=== PATIENT | male | born 1990 | race Caucasian/White ===

== ENCOUNTER 2019-01-08 22:46 | Inpatient (IN) | payer OTHER ==
[~2019-01-08] VITALS: Ht 167.6 cm; Wt 70.9 kg
[2019-01-08 22:52] VITALS: Ht 167.6 cm; Wt 70.9 kg
[2019-01-08 23:36] LABS: microscopic required? YES; urine erythrocyte NEGATIVE (NEGATIVE)
[2019-01-08 23:56] LABS: BASOPHIL % 0.2 % (0-2); PLATELET COUNT 222 x10^3mcL (130-400)
[2019-01-08 23:57] LABS: RED CELL DISTRIBUTION WIDTH 15.9 % (11.5-14.5)
[2019-01-09 00:09] LABS: CALCIUM 8.3 mg/dL (8.5-10.1); CARBON DIOXIDE 26.4 mmol/L (21-32); CHLORIDE SERUM 104 mmol/L (98-107); CREATININE SERUM 1.1 mg/dL (0.7-1.3); GFR1 > 60 mL/min; GLUCOSE SERUM 116 mg/dL (74-106); POTASSIUM SERUM 3.6 mmol/L (3.5-5.1); SODIUM SERUM 142 mmol/L (136-145)
[2019-01-09 00:10] LABS: ovalocyte/elliptocyte 1+
[2019-01-09 00:11] LABS: rbc morphology (normal/abnorm) ABNORMAL (NORMAL)
[2019-01-09 00:13] LABS: ALBUMIN 4.2 g/dL (3.4-5.0); ALKALINE PHOSPHATASE 60 U/L (46-116); ALT/SGPT 35 U/L (16-63); AST/SGOT 14 U/L (15-37); BILIRUBIN TOTAL 1.3 mg/dL (0.20-1.00); LIPASE 193 IU/L (73-393); TOTAL PROTEIN, SERUM 7.9 g/dL (6.4-8.2)
[2019-01-09] MEDS ORDERED: XANAX0.5 MG PO (01:57)
[2019-01-09 02:01] LABS: MAGNESIUM 1.8 mg/dL (1.8-2.4)
[2019-01-09 02:02] LABS: CHOLESTEROL/HDL RATIO 3.2
[2019-01-09 02:40] VITALS: BP 116/63
[2019-01-09 05:50] VITALS: BP 120/59
[2019-01-09 06:53] LABS: CALCIUM 8.4 mg/dL (8.5-10.1); CARBON DIOXIDE 27.5 mmol/L (21-32); CHLORIDE SERUM 104 mmol/L (98-107); GFR1 > 60 mL/min; GLUCOSE SERUM 91 mg/dL (74-106); POTASSIUM SERUM 3.7 mmol/L (3.5-5.1); SODIUM SERUM 143 mmol/L (136-145)
[2019-01-09 07:08] LABS: BASOPHIL % 0.2 % (0-2); PLATELET COUNT 208 x10^3mcL (130-400)
[2019-01-09 07:19] LABS: RED CELL DISTRIBUTION WIDTH 16.5 % (11.5-14.5)
[2019-01-09 07:20] LABS: rbc morphology (normal/abnorm) ABNORMAL (NORMAL)
[2019-01-09 09:07] VITALS: BP 105/50
[2019-01-09 16:30] VITALS: BP 98/49
[2019-01-09 20:16] VITALS: BP 105/57
[2019-01-10 00:05] LABS: AMPHETAMINE QUAL UR NONE DETECTED (See below)
[2019-01-10 05:12] VITALS: BP 106/50
[2019-01-10 06:15] LABS: PLATELET COUNT 184 x10^3mcL (130-400)
[2019-01-10 06:36] LABS: CALCIUM 8.6 mg/dL (8.5-10.1); CARBON DIOXIDE 25.8 mmol/L (21-32); CHLORIDE SERUM 106 mmol/L (98-107); CREATININE SERUM 1.1 mg/dL (0.7-1.3); GFR1 > 60 mL/min; GLUCOSE SERUM 132 mg/dL (74-106); POTASSIUM SERUM 3.9 mmol/L (3.5-5.1); SODIUM SERUM 142 mmol/L (136-145)
[2019-01-10 06:49] LABS: BASOPHIL % 0 % (0-2); RED CELL DISTRIBUTION WIDTH 16.6 % (11.5-14.5)
[2019-01-10 08:26] VITALS: BP 114/58
[2019-01-10 17:03] VITALS: BP 112/63
[2019-01-10 21:37] VITALS: BP 111/64
[2019-01-11 04:06] LABS: RAPID PLASMA REAGIN Non Reactive (Non Reactive)
[2019-01-11 06:00] VITALS: BP 116/55
[2019-01-11 06:28] LABS: BASOPHIL % 0.2 % (0-2); PLATELET COUNT 217 x10^3mcL (130-400)
[2019-01-11 06:56] LABS: CALCIUM 8.6 mg/dL (8.5-10.1); CARBON DIOXIDE 28.3 mmol/L (21-32); CHLORIDE SERUM 103 mmol/L (98-107); CREATININE SERUM 1.1 mg/dL (0.7-1.3); GFR1 > 60 mL/min; GLUCOSE SERUM 87 mg/dL (74-106); MAGNESIUM 1.8 mg/dL (1.8-2.4); PHOSPHOROUS 3.7 mg/dL (2.5-4.9); SODIUM SERUM 142 mmol/L (136-145)
[2019-01-11 07:01] LABS: RED CELL DISTRIBUTION WIDTH 16.4 % (11.5-14.5)
[2019-01-11 10:04] VITALS: BP 110/59
[2019-01-11 14:34] LABS: microscopic required? NO
[2019-01-11 14:43] LABS: UA SPECIFIC GRAVITY <=1.005 (1.005-1.035); urine erythrocyte NEGATIVE (NEGATIVE)
[2019-01-11 17:11] VITALS: BP 114/60
[2019-01-12 06:06] LABS: BASOPHIL % 0.3 % (0-2); PLATELET COUNT 185 x10^3mcL (130-400)
[2019-01-12 06:11] VITALS: BP 99/49
[2019-01-12 06:18] LABS: CALCIUM 8.8 mg/dL (8.5-10.1); CARBON DIOXIDE 30.7 mmol/L (21-32); CHLORIDE SERUM 107 mmol/L (98-107); CREATININE SERUM 0.9 mg/dL (0.7-1.3); GFR1 > 60 mL/min; GLUCOSE SERUM 81 mg/dL (74-106); PHOSPHOROUS 4.2 mg/dL (2.5-4.9); POTASSIUM SERUM 4.4 mmol/L (3.5-5.1); SODIUM SERUM 142 mmol/L (136-145)
[2019-01-12 07:28] LABS: RED CELL DISTRIBUTION WIDTH 16.1 % (11.5-14.5)
[2019-01-12 08:05] VITALS: BP 125/68
[2019-01-12 10:12] VITALS: BP 125/68
== END 2019-01-12 11:25 | disposition home or self-care (01) | DRG 233 ==
LOC: ED 22:46 → MU 01-09 01:28
PROVIDERS: Emergency Medicine; Internal Medicine; Surgery; ADMIT Internal Medicine
PROC: 0DTJ4ZZ Resection of Appendix, Percutaneous Endoscopic Approach (ICD-10-PCS; principal; 2019-01-09 11:00)
DX: K35.32 Acute appendicitis with perforation, localized peritonitis, and gangrene, without abscess (principal); E80.6 Other disorders of bilirubin metabolism; F41.9 Anxiety disorder, unspecified
CPT/HCPCS: 83880; C9113; G0378; J0330; J0696; J1885; J2060; J2250; J2270; J2405; J2704; J3010; J3490; J7030; J7060; J7120; Q0092; Q9967